=== PATIENT | male | born 1990 | race Caucasian/White ===

== ENCOUNTER 2020-05-07 15:01 | Emergency (ER) | payer SELFPAY ==
--- NOTE | 2020-05-07 15:22 | PDOC ---
Rapid Medical Evaluation Time Seen by Provider: 05/07/20 15:20 Medical Evaluation: Allergies Allergy/AdvReac Type Severity Reaction Status Date / Time acetaminophen [From NyQuil] Allergy Unknown Swelling Verified 05/07/20 15:18 brompheniramine maleate Allergy Unknown Swelling Verified 05/07/20 15:18 [From DayQuil Allergy 12-HR] dextromethorphan Hbr Allergy Unknown Swelling Verified 05/07/20 15:18 [From NyQuil] doxylamine [From NyQuil] Allergy Unknown Swelling Verified 05/07/20 15:18 phenylpropanolamine HCl Allergy Unknown Swelling Verified 05/07/20 15:18 [From DayQuil Allergy 12-HR] pseudoephedrine HCl Allergy Unknown Swelling Verified 05/07/20 15:18 [From NyQuil] 05/07/20 15:20 CC: cut with a knife to a rt 2nd finger. tdap 1 year ago Exam: area dressed. viewed picture from ems (lac to lat aspect of rt 2nd digit), FROM of digit Plan: fasttrack Discharge Disposition - Diagnosis Laceration of finger - Referrals - Patient Instructions - Post Discharge Activity
[2020-05-07 15:23] VITALS: BP 112/58; PULSE 90; BMI 40.7
[2020-05-07 15:27] VITALS: TEMP 97.9
--- OUTSIDE RECORDS SUMMARY | 2020-05-07 15:30 | XMS ---
:1990 Author Organization [facility] Support Name Relationship Address Phone UE Unavailable Unavailable Unavailable ASHVIN [employer] MOTHER [address] [place] [address] Re-disclosure Warning The records that you are about to access may contain information from federally- assisted alcohol or drug abuse programs. If such information is present, then the following federally mandated warning applies: This information has been disclosed to you from records protected by federal confidentiality rules (42 CFR part 2). The federal rules prohibit you from making any further disclosure of this information unless further disclosure is expressly permitted by the written consent of the person to whom it pertains or as otherwise permitted by 42 CFR part 2. A general authorization for the release of medical or other information is NOT sufficient for this purpose. The Federal rules restrict any use of the information to criminally investigate or prosecute any alcohol or drug abuse patient.The records that you are about to access may contain highly sensitive health information, the redisclosure of which is protected by Article 27-F of the [facility] Public Health law. If you continue you may haveaccess to information: Regarding HIV / AIDS; Provided by facilities licensed or operated by the [facility] Office of Mental Health; or Provided by the [facility] Office for People With Developmental Disabilities. If such information is present, then the following [facility] mandated warning applies: This information has been disclosed to you from confidential records which are protected by state law. State law prohibits you from making any further disclosure of this information without the specific written consent of the person to whom it pertains, or as otherwise permitted by law. Any unauthorized further disclosure in violation of state law may result in a fine or longterm sentence or both. A general authorization for the release of medical or other information is NOT sufficient authorization for further disclosure. Insurance Providers Payer name Policy type Policy ID Covered Covered democrat's Policy P jordana / Coverage democrat ID relationship to [employer] type [employer] SELF PAY SP INSURANCE
--- NOTE | 2020-05-07 16:38 | PDOC ---
History of Present Illness - General Chief Complaint: Injury Stated Complaint: LACERATION Time Seen by Provider: 05/07/20 15:20 History Source: Patient Exam Limitations: No Limitations - History of Present Illness Initial Comments: 05/07/20 17:05 Patient is a 29-year-old male who presents to the ED with a right index finger laceration that he sustained just prior to arrival. The patient states he was cutting zip ties with his knife, slipped on a water bug, and accidentally cut his finger. He states the finger was bleeding significantly so he called 911. He denies any numbness or tingling. He is right-hand dominant. He states he got a tetanus booster 1 year ago after getting punctured with a polina nail. The patient states he has a history of asthma. Past History - Medical History Allergies/Adverse Reactions: Allergies Allergy/AdvReac Type Severity Reaction Status Date / Time acetaminophen [From NyQuil] Allergy Unknown Swelling Verified 05/07/20 15:18 brompheniramine maleate Allergy Unknown Swelling Verified 05/07/20 15:18 [From DayQuil Allergy 12-HR] dextromethorphan Hbr Allergy Unknown Swelling Verified 05/07/20 15:18 [From NyQuil] doxylamine [From NyQuil] Allergy Unknown Swelling Verified 05/07/20 15:18 phenylpropanolamine HCl Allergy Unknown Swelling Verified 05/07/20 15:18 [From DayQuil Allergy 12-HR] pseudoephedrine HCl Allergy Unknown Swelling Verified 05/07/20 15:18 [From NyQuil] Home Medications: Ambulatory Orders Diazepam [Valium] 5 mg PO Q8H PRN #9 tablet MDD 3 10/17/15 Naproxen [Naprosyn -] 500 mg PO BID PRN #20 tablet 10/17/15 Cephalexin Monohydrate [Keflex -] 500 mg PO BID #14 capsule 05/07/20 Asthma: Yes Cardiac Disorders: No COPD: No Diabetes: No GI Disorders: No Disorders: No HTN: No Kidney Stones: No Seizures: No - Surgical History Abdominal Surgery: No Appendectomy: No Cardiac Surgery: No Cholecystectomy: No Lung Surgery: No Neurologic Surgery: No Orthopedic Surgery: No - Reproductive History Testicular Surgery: No - Immunization History Immunization Up to Date: No - Psycho-Social/Smoking History Smoking History: Current every day smoker Have you smoked in the past 12 months: Yes Number of Cigarettes Smoked Daily: 10 Information on smoking cessation initiated: Yes 'Breaking Loose' booklet given: 10/17/15 - Substance Abuse Hx (Audit-C & DAST Scrn) How often the patient has a drink containing alcohol: Never Score: In Men: 4 or > Positive; In Women: 3 or > Positive: 0 Screen Result (Pos requires Nsg. Audit-10AR): Negative In the last yr the pt used illegal drug/Rx for NonMed reason: Yes Score: Yes response is considered Positive: 1 Screen Result (Positive result requires Nsg. DAST-10): Positive Review of Systems - Review of Systems Comments:: 05/07/20 17:12 - Review of Systems Able to Perform ROS?: Yes Constitutional: No: Fever, Chills, Loss of Appetite, Night Sweats, Weakness HEENTM: No: Eye Pain, Vision changes, Ear Pain, Throat Pain, Throat Swelling, Mouth Pain, Difficulty Swallowing Respiratory: No: Cough, Shortness of Breath, Wheezing, Sputum Production Cardiac (ROS): No: Chest Pain, Chest Tightness, Palpitations, Irregular Heart Beat, Edema ABD/GI: No: Nausea, Vomiting, Abdominal Pain, Diarrhea : No Dysuria, No Hematuria, No Frequency, No Urgency Musculoskeletal: No: Muscle Pain, Back Pain, Joint Pain, Muscle Weakness, Neck Pain Integumentary: No: Lesions, Rash; positive: Right index finger laceration Neurological: No: Headache, Numbness, Tingling, Weakness, Speech Difficulties *Physical Exam - Vital Signs Last Vital Signs Temp Pulse Resp BP Pulse Ox 97.9 F 90 18 112/58 L 97 05/07/20 15:18 05/07/20 15:18 05/07/20 15:18 05/07/20 15:18 05/07/20 15:18 - Physical Exam 05/07/20 17:12 - Physical Exam General Appearance: Nourished, Appropriately Dressed, No Distress HEENT: EOMI, Normal Voice, Hearing Grossly Normal Neck: Supple, No Lymphadenopathy (R), No Lymphadenopathy (L), No Rigidity, No Decreased range of motion Respiratory/Chest: Lungs Clear, Normal Breath Sounds. No Respiratory Distress, No Accessory Muscle Use Cardiovascular: Regular Rhythm, Regular Rate, S1, S2 Musculoskeletal: Normal Inspection. No Decreased Range of Motion Extremity: Normal Capillary Refill, Normal Inspection Integumentary: Normal Color, Dry. No Rash; roughly 5 cm laceration to the dorsum of the right index finger which extends laterally. There is a flap to the laceration. The injury is superficial with a small arteriole bleed. Sensation intact to the radial, median and ulnar nerve distributions. The patient is able to flex and extend at the DIP, PIP and MCP actively against resistance. 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 NML intact, Fully Oriented, Alert, Normal Mood/Affect, Normal Response Procedures - Laceration/Wound Repair Right Dorsal 2nd digit Wound Length: 2.6 to 5.0 cm Wound Explored: clean Wound's Depth, Shape: superficial, flap Irrigated w/ Saline: Yes Betadine Prep: Yes Anesthesia: 1% Lidocaine Amount of Anesthetic (ccs): 7 Wound Debrided: minimal Wound Repaired With: Sutures Suture Size/Type: 4:0, nylon Number of Sutures: 12 Sterile Dressing Applied: Yes Medical Decision Making - Medical Decision Making 05/07/20 16:34 Assessment: Patient is a 29-year-old male with a right index finger laceration that he sustained with a knife while cutting zip ties. Plan: -Suture repair, arteriole bleed tamponaded with a silver nitrate stick. -Boostrix is up-to-date, patient got one last year -Keflex 1 dose given in the ED, Rx sent to the patient's pharmacy -Patient given wound care instructions -Patient to return to the emergency department in 10 days for suture removal secondary to the laceration being slightly deep and a flap it will require more than 7 days for healing. -He understands and agrees with this treatment plan and the patient is stable for discharge. Discharge - Discharge Information Problems reviewed: Yes Clinical Impression/Diagnosis: Laceration of finger Qualifiers: Encounter type: initial encounter Finger: index finger Damage to nail status: without damage Foreign body presence: without foreign body Laterality: right Qualified Code(s): S61.210A - Laceration without foreign body of right index finger without damage to nail, initial encounter Condition: Stable Disposition: HOME - Additional Discharge Information Prescriptions: Cephalexin Monohydrate [Keflex -] 500 mg PO BID #14 capsule - Follow up/Referral - Patient Discharge Instructions Patient Printed Discharge Instructions: DI for Laceration Repair Additional Instructions: Keep the wound clean and dry for 48 hours. Do not take the bandage off for 48 hours unless it gets soiled. After 48 hours wash the wound once daily with warm water and soap. After washing allowed to dry for at least 30 minutes before covering. Keep the wound uncovered while at home and relaxing. Cover the wound if using your hands or away from home. Return to the emergency department in 10 days to get the stitches taken out. Take Tylenol for pain. Take the antibiotics as prescribed and complete the entire course even if you are feeling well. - Post Discharge Activity Work/Back to School Note: Back to Work
[2020-05-07] MEDS ORDERED: CEPHALEXIN MONOHYDRATE 500 MG CAPSULE (UD) PO ONE (16:40)
[2020-05-07] MEDS ORDERED: ACETAMINOPHEN 500 MG TABLET (FP) PO ONE (16:40)
[2020-05-07] MEDS ORDERED: CEPHALEXIN MONOHYDRATE 500 MG CAPSULE (UD) ONE (16:46)
[2020-05-07] MEDS ORDERED: ACETAMINOPHEN 500 MG TABLET (FP) ONE (16:46)
== END 2020-05-07 16:52 | disposition home or self-care (01) ==
LOC: JERFT 15:01 → JER 15:01 → JERFT 16:52
PROC: 0HQFXZZ Repair Right Hand Skin, External Approach (ICD-10-PCS; principal; 2020-05-07)
DX: S61.210A Laceration without foreign body of right index finger without damage to nail, initial encounter (principal)
CPT/HCPCS: 99283-25

== ENCOUNTER 2020-05-18 09:05 | Emergency (ER) | payer OTHER ==
[2020-05-18 09:12] VITALS: BP 106/55; PULSE 70; TEMP 97.5; BMI 40.3
== END 2020-05-18 09:51 | disposition home or self-care (01) ==
LOC: JERFT 09:05
DX: Z48.02 Encounter for removal of sutures (principal)
CPT/HCPCS: 99281-25

== ENCOUNTER 2020-10-08 12:51 | Emergency (ER) | payer OTHER ==
[2020-10-08 13:05] VITALS: BP 123/54; PULSE 66; TEMP 97.8; BMI 38.0
== END 2020-10-08 15:36 | disposition home or self-care (01) ==
LOC: JER 12:51
DX: J06.9 Acute upper respiratory infection, unspecified (principal)
CPT/HCPCS: 71046-TC-FY; 99284-25; C9803; U0003; U0005